=== PATIENT | female | born 1960 | race Caucasian/White ===

== ENCOUNTER → 2016-05-28 | Outpatient (CLI) | payer BC ==
[~2016-05-28] MED LIST: ACETAMINOPHEN PO; ALBUTEROL0.63 MG/3 IH; ALPRAZOLAM PO; ALPRAZOLAM1 MG PO; AMITRYPTYLINE PO; ASACOL400 MG PO; ASPIRIN PO; ASPIRINBUFF PO; BENTYL10 MG; BENTYL20 MG PO; BUSPAR PO; CHANTIX PO; CLINDAMYCIN HC300 MG PO; COMBIVENT INH14.7 GM INH; CUBICIN IV; CYMBALTA PO; DIAZEPAM PO; DICYCLOMINE HCL20 MG PO; DOXEPIN HCL100 MG; DOXEPIN HCL50 MG PO; DOXEPIN PO; FLAGYL PO; FLEXERIL PO; FLORASTOR250 M1 PO; GABAPENTIN600 MG PO; HYDROCODON-ACE1 EAC7 PO; KEFLEX PO; KROGER PHARMACY; LEVAQUIN PO; LINZESS145 MCG PO; LORTAB 5-325 M1 EACH PO; MACROBID 100 M100 MG PO; MACROBID100 M1 PO; MEDROL4 MG/DOSE- PO; METRONIDAZOLE PO; MORPHINE SULFAT30 M4 PO; MS CONTIN PO; NEURONTIN PO; NEURONTIN300 MG PO; NEURONTIN600 MG PO; ORAMORPH SR30 MG PO; OXYCODONE15 MG PO; PATIENT'S PHARMACY; PERCOCET10 PO; PERCOCET7.5 PO; PHENERGAN PO; PRAVACHOL PO; PRAVACHOL10 MG PO; PRILOSEC PO; PRILOSEC40 MG PO; PYRIDIUM PO; REGLAN PO; ROBITUSSIN A-C-S1 ML DOB; TEMAZEPAM PO; TOFRANIL PO; VISTARIL PO; ZANAFLEX PO; ZANAFLEX2 M1 PO; ZANAFLEX6 MG PO; ZITHROMAX PO; ZOFRAN ODT4 MG PO; ZYLOPRIM100 MG PO; [UNRECOGNIZED DRUG - REMARK]
--- NOTE | ~2016-05-28 | CR184 ---
[facility] A Service of [facility] & [facility] RADIOLOGY TEXT RESULTS PATIENT: VEE APARICIO LOCATION: [facility] : 62 UNIT #: [id number] AGE: [address]: Nikia Baker MD SEX: F ORDER DR: [id number] [facility] [address] [place], [place] [address] [id number] O MR#: [id number] Acc #: [id number] NAME: VEE APARICIO : 1960 SEX: F STUDY DATE/TIME: 05/28/2016 16:38 UNIT: [facility] ROOM: STUDY DESCRIPTION: CR Lumbar Spine Min 4 Views Attending Physician: Nikia Baker M.D. Referring Physician: Nikia Baker M.D. Ordering Physician: Nikia Bkaer M.D. Primary Care Physician: Nikia Baker M.D. MEDICAL IMAGING REPORT This report is preliminary unless electronic signature is present EXAM Lumbosacral spine total of 5 views HISTORY Low back pain for 17 years. Recent fall. FINDINGS AP, lateral, spot flexion/extension views are submitted. There is marked disc space narrowing at the L3-4 level with reactive endplate sclerosis. There is mild disc space narrowing at L4-5. There is advanced facet disease at the lower 3 levels. No fractures are identified. There is atherosclerotic calcification in the aorta. Vertebral body height is maintained. CONCLUSION Degenerative disc disease marked at L3-4 and to a lesser degree L4-5. Facet disease lower 3 lumbar levels. Dictated by... Jaocb Cowan M.D. THIS IS AN ELECTRONICALLY VERIFIED REPORT Jacob Cowan M.D. at 05/31/2016 5:09 PM NEGRITA/melecio TD: 05/29/2016 11:10 JOB #: [id number] MEDICAL IMAGING REPORT COPY
== END | disposition home or self-care (01) ==
LOC: CRAD 16:16
DX: M51.36 Other intervertebral disc degeneration, lumbar region (principal)
CPT/HCPCS: 72110

== ENCOUNTER → 2016-08-16 | Outpatient (CLI) | payer BC ==
--- NOTE | ~2016-08-16 | CR139 ---
[facility] A Service of [facility] & [facility] RADIOLOGY TEXT RESULTS PATIENT: VEE APARICIO LOCATION: [facility] : 62 UNIT #: [id number] AGE: [address]: Nikia Baker MD SEX: F ORDER DR: [id number] [facility] [address] [place], [place] [address] [id number] O MR#: [id number] Acc #: [id number] NAME: VEE APARICIO : 1960 SEX: F STUDY DATE/TIME: 08/16/2016 17:00 UNIT: [facility] ROOM: STUDY DESCRIPTION: CR Hand 2 Views Rt Attending Physician: Nikia Baker M.D. Referring Physician: Nikia Baker M.D. Ordering Physician: Nikia Baker M.D. Primary Care Physician: Nikia Baker M.D. MEDICAL IMAGING REPORT This report is preliminary unless electronic signature is present EXAM Right hand 2 views 08/16/2016 1700 hours CLINICAL HISTORY 56-year-old woman with complaint of 2-day history of right hand pain and swelling of second digit, fever, foot pain and swelling. Possible gout. COMPARISON Right hand 05/13/2014. FINDINGS AP and lateral views demonstrate normal bone density. Distal radius and ulna are intact. There is no carpal bone fracture. The intercarpal joints, MCP joints and PIP joints are normal. There is an abnormal appearance of the distal interphalangeal joint of the second finger with joint space loss and spurring and small ossicles. This has progressed since 05/13/2014. Findings is nonspecific. Osteoarthritis is favored. Gout is possible. IMPRESSION 1. No fracture or dislocation. No erosive changes. 2. Interval progression of degenerative change at the distal interphalangeal joint of the index finger since 05/13/2014. There is joint space loss, spurring and small ossicles. Findings are most suggestive of osteoarthritis, although gout could have this appearance. Dictated by... Jovita Graff M.D. THIS IS AN ELECTRONICALLY VERIFIED REPORT Jovita Graff M.D. at 08/18/2016 9:30 AM [facility] A Service of [facility] & [facility] RADIOLOGY TEXT RESULTS PATIENT: VEE APARICIO [id number] [birth year] UNIT #: [id number] AGE: [address]: Nikia Baker MD SEX: F ORDER DR: TYE/sage TD: 08/17/2016 14:31 JOB #: [id number] MEDICAL IMAGING REPORT Page 1 of 1 COPY
--- NOTE | ~2016-08-16 | CR63 ---
[facility] A Service of [facility] & [facility] RADIOLOGY TEXT RESULTS PATIENT: VEE APARICIO LOCATION: [facility] : 62 UNIT #: [id number] AGE: [address]: Nikia Baker MD SEX: F ORDER DR: [id number] [facility] [address] [place], [place] [address] [id number] O MR#: [id number] Acc #: [id number] NAME: VEE APARICIO : 1960 SEX: F STUDY DATE/TIME: 08/16/2016 16:59 UNIT: [facility] ROOM: STUDY DESCRIPTION: CR Chest 2 View Attending Physician: Nikia Baker M.D. Referring Physician: Nikia Baker M.D. Ordering Physician: Nikia Baker M.D. Primary Care Physician: Nikia Baker M.D. MEDICAL IMAGING REPORT This report is preliminary unless electronic signature is present EXAM Chest 2 views 08/16/2016 1659 hours CLINICAL HISTORY Cough and fever for 3-4 days. Evaluate for pneumonia. COMPARISON 12/22/2015 FINDINGS Upright PA and lateral views of the chest demonstrate normal cardiac, mediastinal and hilar contours. There is stable benign calcified granulomatous changes. There are no acute pulmonary densities or pleural effusions. IMPRESSION Stable benign calcified granulomatous changes. No acute cardiopulmonary findings. No appreciable change from 12/22/2015. Dictated by... Jovita Graff M.D. THIS IS AN ELECTRONICALLY VERIFIED REPORT Jovita Graff M.D. at 08/17/2016 2:31 PM TYE/sage TD: 08/17/2016 14:17 JOB #: [id number] MEDICAL IMAGING REPORT Page 1 of 1 COPY
--- NOTE | ~2016-08-16 | CR124 ---
[facility] A Service of [facility] & [facility] RADIOLOGY TEXT RESULTS PATIENT: VEE APARICIO LOCATION: [facility] : 62 UNIT #: [id number] AGE: [address]: Nikia Baker MD SEX: F ORDER DR: [id number] [facility] [address] [place], [place] [address] [id number] O MR#: [id number] Acc #: [id number] NAME: VEE APARICIO : 1960 SEX: F STUDY DATE/TIME: 08/16/2016 16:59 UNIT: [facility] ROOM: STUDY DESCRIPTION: CR Foot 2 Views Rt Attending Physician: Nikia Baker M.D. Referring Physician: Nikia Baker M.D. Ordering Physician: Nikia Baker M.D. Primary Care Physician: Nikia Baker M.D. MEDICAL IMAGING REPORT This report is preliminary unless electronic signature is present EXAM Right foot 08/16/2016 1659 hours CLINICAL HISTORY 56-year-old woman with polyarthralgia, foot pain, redness and swelling, possible gout. Symptoms for 2 days. COMPARISON None. FINDINGS AP, lateral and oblique views demonstrate normal bone density. There is no joint space loss, spurring, or erosions. IMPRESSION Negative right foot. Dictated by... Jovita Graff M.D. THIS IS AN ELECTRONICALLY VERIFIED REPORT Jovita Graff M.D. at 08/17/2016 2:31 PM TYE/sage TD: 08/17/2016 14:16 JOB #: [id number] MEDICAL IMAGING REPORT Page 1 of 1 COPY
== END | disposition home or self-care (01) ==
LOC: CRAD 16:33
DX: R50.9 Fever, unspecified (principal); M25.50 Pain in unspecified joint
CPT/HCPCS: 71020; 73120; 73620

== ENCOUNTER → 2016-08-18 | Outpatient (CLI) | payer BC ==
--- NOTE | ~2016-08-18 | CT3 ---
[facility] A Service of [facility] RADIOLOGY TEXT RESULTS PATIENT: VEE APARICIO LOCATION: [facility] : 62 UNIT #: [id number] AGE: [address]: Demetrius Motley MD SEX: F ORDER DR: [id number] [place] [id number] [facility] [place], [place] [address] [id number] O MR#: [id number] Acc #: [id number] NAME: VEE APARICIO : 1960 SEX: F STUDY DATE/TIME: 08/18/2016 16:01 UNIT: [facility] ROOM: STUDY DESCRIPTION: CT Abd and Pelv WWo Cont Attending Physician: Demetrius Motley M.D. Referring Physician: Demetrius Motley M.D. Ordering Physician: Demetrius Motley M.D. Primary Care Physician: Nikia Baker M.D. MEDICAL IMAGING REPORT This report is preliminary unless electronic signature is present EXAM CT abdomen without contrast, CT abdomen and pelvis with contrast INDICATIONS Low grade fever for the past month. Alternating constipation and diarrhea for the past month. Epigastric abdominal pain for 2 months. History of colon cancer. Observation for metastatic disease. PROCEDURE Unenhanced CT of the abdomen. Postcontrast CT of the abdomen and pelvis multiphase acquisition through the liver. This CT exam was performed with one or more of the following radiation dose reduction techniques: automatic exposure control, adjustment of mA and/or kV according to patient size, and iterative reconstruction. COMPARISON STUDIES 09/24/2015 FINDINGS ABDOMEN WITHOUT CONTRAST: Included lung bases clear. Previous cholecystectomy. No radiodense renal calculus. ABDOMEN WITH CONTRAST: Liver is not frankly cirrhotic in morphology. Liver measures 18.2 cm in length. There is no liver mass. The spleen, kidneys, adrenal glands, pancreas are unremarkable. Previous cholecystectomy. Bowel loops are nondilated. Moderate colonic stool burden. PELVIS WITH CONTRAST: Previous hysterectomy. No pelvic mass or fluid. No aggressive appearing bone lesion. [facility] A Service of [facility] RADIOLOGY TEXT RESULTS PATIENT: VEE APARICIO LOCATION: [facility] : 62 UNIT #: [id number] AGE: [address]: Demetrius Motley MD SEX: F ORDER DR: IMPRESSION 1. No acute findings in the abdomen or pelvis. 2. Normal morphology of the liver. No liver mass. 3. Moderate colonic stool burden. Dictated by... Estiven Fontenot M.D. THIS IS AN ELECTRONICALLY VERIFIED REPORT Estiven Fontenot M.D. at 08/19/2016 10:22 PM Denia TD: 08/19/2016 16:58 JOB #: [id number] MEDICAL IMAGING REPORT Page 1 of 1 COPY
== END | disposition home or self-care (01) ==
LOC: CCAT 14:06
DX: R10.84 Generalized abdominal pain (principal); K59.00 Constipation, unspecified; T18.2XXA Foreign body in stomach, initial encounter; K44.9 Diaphragmatic hernia without obstruction or gangrene; K52.9 Noninfective gastroenteritis and colitis, unspecified; K64.0 First degree hemorrhoids; R11.2 Nausea with vomiting, unspecified; K62.5 Hemorrhage of anus and rectum
CPT/HCPCS: 74178; Q9967

== ENCOUNTER 2016-10-12 12:34 | Emergency (ER) | payer OTHER, BC ==
[~2016-10-12] VITALS: Ht 167.6 cm; Wt 60.8 kg
--- NOTE | ~2016-10-12 | EKG ---
PATIENT: VEE APARICIO UNIT #: [id number] Ventricular Rate: 93 BPM Atrial Rate: 93 BPM P-R Interval: 122 ms QRS Duration: 86 ms Q-T Interval: 366 ms QTC Calculation(Bezet): 455 ms P Rawlings: 40 degrees Calculated R Rawlings: 18 degrees Calculated T Rawlings: 23 degrees Diagnosis Line: Normal sinus rhythm Diagnosis Line: Normal ECG Diagnosis Line: No previous ECGs available Diagnosis Line: Confirmed by NEEMA AUGUSTIN MD ([id number]) on 10/13/2016 Diagnosis Line: 7:38:04 PM INTERPRETING MD: CHARLI VALLE
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
[~2016-10-12 12:34] MED LIST changes: -DOXEPIN HCL50 MG PO; -GABAPENTIN600 MG PO; -LINZESS145 MCG PO; -PATIENT'S PHARMACY; -ZYLOPRIM100 MG PO
[2016-10-12] MEDS ORDERED: GABAPENTIN600 MG PO (14:29)
[2016-10-12] MEDS ORDERED: PATIENT'S PHARMACY (14:29)
[2016-10-12] MEDS ORDERED: PHENERGAN PO (14:30)
[2016-10-12] MEDS ORDERED: DICYCLOMINE HCL20 MG PO (14:30)
[2016-10-12] MEDS ORDERED: LINZESS145 MCG PO (14:30)
[2016-10-12] MEDS ORDERED: ZANAFLEX PO (14:31)
[2016-10-12] MEDS ORDERED: ZYLOPRIM100 MG PO (14:31)
[2016-10-12] MEDS ORDERED: DOXEPIN HCL50 MG PO (14:31)
[2016-10-12] MEDS ORDERED: PRILOSEC PO (14:31)
[2016-10-12 14:33] LABS: URINE SOURCE CLEAN CATCH
[2016-10-12 14:37] LABS: URINE APPEARANCE CLEAR; URINE BILIRUBIN NEG (NEG); URINE BLOOD TRACE (NEG); URINE COLOR YELLOW; URINE GLUCOSE NEG (NEG); URINE KETONE NEG (NEG); URINE LEUKOCYTE ESTERASE 2+ (NEG); URINE NITRATE NEG (NEG); URINE PROTEIN NEG (NEG); URINE SPECIFIC GRAVITY 1.006 (1.003-1.035); URINE UROBILINOGEN 0.2 MG/DL (NEG)
[2016-10-12 14:40] LABS: CULTURE INDICATED? YES; URBCS1 AUWI 0-2 /[HPF] (0-2); URINE BACTERIA AUWI NEG (NEGATIVE); URINE SQUAMOUS EPITHELIAL CELL OCC /[HPF]
[2016-10-12 14:47] LABS: BASOPHIL# 0.1 X10e3 (0-0.3); BASOPHIL% 0.9 % (0-2.5); EOSINOPHIL# 0.2 X10e3 (0-0.7); HEMATOCRIT 36.6 % (35.0-45.0); HEMOGLOBIN 12.7 gm/dL (12.0-16.0); LYMPHOCYTE# 2.2 X10e3 (1.0-3.5); LYMPHOCYTE% 20.6 % (17.0-45.0); MEAN CORPUSCULAR HEMOGLOBIN 30.5 PG (28-34); MEAN CORPUSCULAR HGB CONC 34.7 g/dL (30-36); MEAN PLATELET VOLUME 7.6 FL (6.5-11.5); MONOCYTE# 0.7 X10e3 (0-1.0); MONOCYTE% 6.8 % (3.0-12.0); NEUTROPHIL# 7.6 X10e3 (1.5-7.1); NEUTROPHIL% 69.7 % (40-75); PLATELET COUNT 428 X10e3 (140-420); RED BLOOD COUNT 4.16 X10e (3.90-5.30); RED CELL DISTRIBUTION WIDTH 14.3 % (11.0-15.5); WHITE BLOOD COUNT 10.8 X10e3 (4.0-10.5)
[2016-10-12 14:54] LABS: DIFF IND NO
[2016-10-12 14:55] LABS: AMPHETAMINE POS (NEG); BARBITURATES NEG (NEG); BENZODIAZEPINES POS (NEG); COCAINE NEG (NEG); MARIJUANA POS (NEG); OPIATES NEG (NEG); TRICYCLIC ANTIDEPRESSANTS NEG (NEG); U METHADONE POS (NEG)
[2016-10-12 15:08] LABS: ALKALINE PHOSPHATASE 155 U/L (32-92); ALT (SGPT) 23 U/L (10-40); AST (SGOT) 31 U/L (10-42); BILIRUBIN,TOTAL 0.5 mg/dL (0.2-2.0); BLOOD UREA NITROGEN 9 mg/dL (9-23); BUN/CREATININE RATIO 8.18; CALCIUM SERUM 9.5 mg/dL (8.4-10.2); CARBON DIOXIDE 29 mmol/L (22-31); CHLORIDE 94 mmol/L (100-111); CREATININE SERUM 1.1 mg/dL (0.6-1.4); GLOM FILT RATE Estimated 56.5 mL/min (>60); GLUCOSE FASTING 92 mg/dL (70-110); POTASSIUM 3.4 mmol/L (3.5-5.1); SODIUM 132 mmol/L (135-145)
[2016-10-12 15:18] LABS: BILIRUBIN, DIRECT <0.1 mg/dL (0.0-0.2); BILIRUBIN,INDIRECT 0.4 mg/dL (0.0-0.9)
[2016-10-12 15:26] LABS: POC - CKMB 9.5 ng/mL (0.0-7.9); POC - TROPONIN <0.05 ng/mL (<=0.05)
== END 2016-10-12 16:58 | disposition home or self-care (01) ==
LOC: CED 12:34
PROVIDERS: Emergency Medicine
DX: J44.9 Chronic obstructive pulmonary disease, unspecified (principal); Z90.49 Acquired absence of other specified parts of digestive tract; Z90.710 Acquired absence of both cervix and uterus; Z88.5 Allergy status to narcotic agent; Z79.899 Other long term (current) drug therapy
CPT/HCPCS: 36415; 70450; 80048; 80076; 80307; 81003; 82553; 83880; 84484; 85025; 87086; 93005; 96361; 96374; 96375; 99284; J2060; J2270

== ENCOUNTER → 2016-11-09 | Outpatient (CLI) | payer BC ==
[~2016-11-09] MED LIST changes: +DOXEPIN HCL50 MG PO; +GABAPENTIN600 MG PO; +LINZESS145 MCG PO; +PATIENT'S PHARMACY; +ZYLOPRIM100 MG PO
--- NOTE | ~2016-11-09 | CR63 ---
[facility] A Service of [facility] & [facility] RADIOLOGY TEXT RESULTS PATIENT: VEE APARICIO LOCATION: [facility] : 62 UNIT #: [id number] AGE: [address]: PREETI LOPEZ APRN SEX: F ORDER DR: [id number] [facility] [address] [place], [place] [address] [id number] O MR#: [id number] Acc #: [id number] NAME: VEE APARICIO : 1960 SEX: F STUDY DATE/TIME: 11/09/2016 16:04 UNIT: [facility] ROOM: STUDY DESCRIPTION: CR Chest 2 View Attending Physician: Preeti Lopez Np Referring Physician: Preeti Lopez Np Ordering Physician: Preeti Lopez Np Primary Care Physician: Nikia Baker M.D. MEDICAL IMAGING REPORT This report is preliminary unless electronic signature is present EXAM Two-view chest 11/09/2016 HISTORY 56-year-old female with cough and congestion for 1 week. COMPARISON STUDIES Chest 08/16/2016. FINDINGS 2 views of the chest demonstrate clear lungs. No pleural effusion or pneumothorax. Heart size and mediastinum are normal. Pulmonary vasculature normal. IMPRESSION No acute cardiopulmonary findings. Dictated by... Manuel Darby M.D. THIS IS AN ELECTRONICALLY VERIFIED REPORT Manuel Darby M.D. at 11/10/2016 1:19 PM SENAIT/benito TD: 11/09/2016 19:58 JOB #: [id number] MEDICAL IMAGING REPORT Page 1 of 1 COPY
== END | disposition home or self-care (01) ==
LOC: CRAD 15:44
DX: J44.1 Chronic obstructive pulmonary disease with (acute) exacerbation (principal)
CPT/HCPCS: 71020